=== PATIENT | female | born 1950 | race African-American/Black ===

== ENCOUNTER 2023-05-15 10:00 | Outpatient (REF) | payer BC, SELFPAY | END 2023-05-15 10:01 | disposition home or self-care (01) | LOC: NFLDREF 10:00 | PROVIDERS: PCP Internal Medicine; Referring Provider Internal Medicine; Visit Provider Internal Medicine | DX: Z13.1 Encounter for screening for diabetes mellitus (principal); Z13.220 Encounter for screening for lipoid disorders | CPT/HCPCS: 80061; 82947 ==

== ENCOUNTER 2023-05-22 15:02 | Outpatient (CLI) | payer BC, SELFPAY ==
--- NOTE | 2023-05-22 15:20 | CRLHL7_ITS ---
For Patients: As a result of the Cures Act, medical imaging exams and procedure reports are released immediately into your electronic medical record. You may view this report before your referring provider. If you have questions, please contact your health care provider. BILATERAL SCREENING MAMMOGRAM WITH COMPUTER-AIDED DETECTION AND TOMOSYNTHESIS TECHNIQUE: CC and MLO views were obtained. These mammographic images have been obtained using full-field digital technique. These mammographic images were interpreted with the benefit of computer-aided detection. Breast Tomosynthesis was used in this interpretation. COMPARISON FILM: 12/28/19, 08/25/18, 11/27/16. FINDINGS: There are scattered areas of fibroglandular density IMPRESSION: There is no radiographic evidence for malignancy. ASSESSMENT: BI-RADS Category 1: Negative RECOMMENDATION: Routine screening mammogram in 1 year. A lay language report of this examination will be provided to the patient. AARON MCCLENDON MD Diagnostic/Nuclear Medicine Radiologist [email or web address] HEYDI/rondae be/Dictated by: Aaron Mcclendon MD @ 05/25/2023 8:35:00 AM (Electronically Signed)
== END 2023-05-22 15:03 | disposition home or self-care (01) ==
LOC: MAMMO 15:03
PROVIDERS: PCP Internal Medicine; Visit Provider Internal Medicine
DX: Z12.31 Encounter for screening mammogram for malignant neoplasm of breast (principal)
CPT/HCPCS: 77063; 77067

== ENCOUNTER 2024-04-06 11:42 | Emergency (ER) | payer BC, SELFPAY ==
[2024-04-06 11:48] VITALS: BP 140/77; PULSE 98; RESP 16; TEMP 36.7; O2SAT 99; BMI 29.4
--- NOTE | 2024-04-06 12:08 | ED_ITS ---
HPI - General Adult General Chief complaint: Cough Stated complaint: Cough, phlegm, fever, covid exposure Time Seen by Provider: 04/06/24 11:50 History of Present Illness HPI narrative: This 73-year-old female comes in reporting cough and fever that began 4 days ago. She arrives here with normal vital signs and does not currently have a fever. She does not report any shortness of breath. She does report some productive cough and other times feeling like she is unable to expect her 8. Related Data Home Medications ?Medication ?Instructions ?Recorded ?Confirmed multivitamin 1 tab PO QAM 01/22/23 03/14/24 calcium 1 tab PO DAILY 05/19/23 03/14/24 cholecalciferol (vitamin D3) 1 tab PO DAILY 05/19/23 03/14/24 Previous Rx's ?Medication ?Instructions ?Recorded azithromycin 500 mg tablet 500 mg PO QDAY #3 tabs 03/14/24 mefloquine 250 mg tablet 250 mg PO QWEEK #10 tabs 03/14/24 naproxen 500 mg tablet 500 mg PO BIDWMEAL #28 tabs 03/14/24 acetaminophen 300 mg-codeine 30 mg 1 tab PO Q6H PRN pain #15 tabs 04/06/24 tablet methylprednisolone 4 mg tablets in See Rx Instructions PO .COMPLEX 04/06/24 a dose pack (Medrol (Choco)) #21 ea Allergies Allergy/AdvReac Type Severity Reaction Status Date / Time No Known Drug Allergies Allergy Verified 04/06/24 11:48 Review of Systems Status of ROS: Reports: 10 or more systems reviewed and unremarkable except as noted in History and below Narrative: Constitutional: No fevers, no weight gain or loss. Eyes: No discharge. No vision changes. HENT: No congestion, no sore throat, no ear pain. Cardiovascular: No chest pain, no palpitations. Respiratory: No shortness of breath, no wheezes. Cough as described above. Gastrointestinal: No abdominal pain, no vomiting, no diarrhea. Genitourinary: No dysuria, no hematuria. Musculoskeletal: Normal range of motion. Skin: No rashes, no pruritis. Neurological: No dizziness, weakness, sensory change, speech change. Endo/Heme/Allergies: No bruising or bleeding. No polydipsia. Pysch: no suicidality, no anxiety, no insomnia. All other systems reviewed and are negative. PFSH PFSH Surgical History (Updated 01/22/23 @ 10:31 by Oxana Keys MD) History of vertebral fracture ?Z87.81 - Personal history of (healed) traumatic fracture (ICD-10) History of partial thyroidectomy ?E89.0 - Postprocedural hypothyroidism (ICD-10) History of hysterectomy ?Z90.710 - Acquired absence of both cervix and uterus (ICD-10) Social History (Updated 05/19/23 @ 12:53 by Manju Giron ~ [place]) What is your current living situation?: I presently have a place to live Problems where you live: carbon monoxide detectors missing or not working In the past 12 months, utilities in danger of being shut off: no In past 12 months, lack of transportation kept you from medical appts, meetings, work, or getting things needed for daily living: yes In the past 12 mos, have been you worried that your food would run out before you had money to buy more?: never true In the past 12 mos, the food you bought just didn't last and you didn't have money to buy more?: sometimes true Smoking Status: Never smoker How often do you have a drink containing alcohol: never AUDIT-C Alcohol total score: 0 Non-prescribed substance use: denies use How often does anyone, including family, friends and others, physically hurt you : never How often does anyone, including family, friends and others, insult or talk down to you: sometimes How often does anyone, including family, friends and others, threaten you with harm: never How often does anyone, including family, friends and others, scream or curse at you: never Little interest or pleasure in doing things: not at all Feeling down, depressed, or hopeless: not at all Exam Narrative: Exam Narrative: Constitutional: Well-developed, well-nourished, no acute distress. HEENT: Normocephalic, atraumatic. Neck: Normal range of motion. Nontender. Supple. Heart: Regular. No murmurs. Normal rate. Intact distal pulses. Lungs: Clear to auscultation. No chest discomfort. No wheezes, rhonchi, or rales. Abdomen: Normal bowel sounds. Nontender. No rebound tenderness. Genitalia: Deferred. Back: No midline tenderness. Normal range of motion. Extremities: Normal range of motion. No injury. Skin: Intact. No rash. Warm. No erythema or pallor. Neurologic: No altered sensation. No weakness. Alert and oriented. Psychiatric: No suicidality. No anxiety or depression. No insomnia. Nursing notes and vitals signs are reviewed. Const: Vital Signs, click to edit/add: Vital Signs - 24 hr 04/06/24 11:48 Temperature 98.0 F Pulse Rate [Pulse Oximeter] 98 Respiratory Rate 16 Blood Pressure [Ri ght Upper Arm] 140/77 H Pulse Oximetry 99 Oxygen Delivery Me thod Room Air Course Vital Signs Vital signs: Initial Vital Signs Temperature 98.0 F 04/06/24 11:48 Temperature Source Temporal Artery Scan 04/06/24 11:48 Pulse Rate 98 04/06/24 11:48 Respiratory Rate 16 04/06/24 11:48 Blood Pressure 140/77 H 04/06/24 11:48 Blood Pressure Mean 98 04/06/24 11:48 Blood Pressure Position Sitting 04/06/24 11:48 Pulse Oximetry 99 04/06/24 11:48 Oxygen Delivery Method Room Air 04/06/24 11:48 Vital Signs Temperature 98.0 F 04/06/24 11:48 Pulse Rate 98 04/06/24 11:48 Respiratory Rate 16 04/06/24 11:48 Blood Pressure 140/77 H 04/06/24 11:48 Pulse Oximetry 99 04/06/24 11:48 Oxygen Delivery Method Room Air 04/06/24 11:48 Temperature 98.0 F 04/06/24 11:48 Pulse Rate 98 04/06/24 11:48 Respiratory Rate 16 04/06/24 11:48 Blood Pressure 140/77 H 04/06/24 11:48 Pulse Oximetry 99 04/06/24 11:48 Oxygen Delivery Method Room Air 04/06/24 11:48 Medical Decision Making MDM Narrative Medical decision making narrative: This patient comes in reporting 4 days of cough that began with fever also. She arrives here with normal vital signs and has a normal exam. Chest x-ray is obtained and shows no acute cardiopulmonary disease according to radiology report. Additionally swabs are obtained which returned with negative results f or strep, COVID, RSV, and influenza. The patient is likely dealing with some other viral upper respiratory infection. She is okay to be discharged home and did received prescriptions for Medrol Dosepak and Tylenol 3. Lab Data Labs: Lab Results 04/06/24 Range/Units 12:00 SARS-CoV-2 (PCR) Negative SARS-CoV-2 (Negative) Influenza Type A (PCR) Negative PCR FLU A (Negative) Influenza Type B (PCR) Negative PCR FLU B (Negative) RSV (PCR) Negative PCR RSV (Negative) Group A Strep DNA NOT DETECTED (Not Detectd) Imaging Data Chest x-ray: Radiologist's impression: No evidence of acute cardiopulmonary disease. Discharge Plan Discharge Clinical Impression: Acute upper respiratory infection Additional Instructions: Take medication as prescribed. Use [id number] cough medicine also as needed and directed. Follow up with MD or return if worsening. Prescriptions: New acetaminophen-codeine 300-30 mg tablet 1 tab PO Q6H PRN (Reason: pain) Qty: 15 0RF methylprednisolone [Medrol (Choco)] 4 mg tablets,dose pack See Rx Instructions .ROUTE .COMPLEX Qty: 21 0RF Rx Instructions: orally per package directions No Action cholecalciferol (vitamin D3) 1 tab PO DAILY calcium 1 tab PO DAILY mefloquine 250 mg tablet 250 mg PO QWEEK Qty: 10 0RF Rx Instructions: Start 1 week before entering malaria area, weekly during entire trip, and for 1 month after leaving malaria area azithromycin 500 mg tablet 500 mg PO QDAY Qty: 3 0RF Rx Instructions: For self-treatment of traveller's diarrhea not helped with over the counter medications multivitamin Tablet 1 tab PO QAM naproxen 500 mg tablet 500 mg PO BIDWMEAL Qty: 28 0RF Follow Up/Referrals: Oxana Keys MD [Primary Care Provider] - Stand Alone Forms: [facility] Info Instructions
--- NOTE | 2024-04-06 12:08 | CRLHL7_ITS ---
For Patients: As a result of the Cures Act, medical imaging exams and procedure reports are released immediately into your electronic medical record. You may view this report before your referring provider. If you have questions, please contact your health care provider. INDICATION: Cough. TECHNIQUE: Chest 2 views. COMPARISON: 07/28/2023. FINDINGS: No pneumothorax or pleural effusion. Lungs are clear. Cardiac and mediastinal contours are within normal limits. Upper abdomen and osseous structures as imaged show no acute abnormality. IMPRESSION: No evidence of acute cardiopulmonary disease. Dictated by Deepak Huitron MD @ 04/06/2024 12:51:33 PM (Electronically Signed)
[2024-04-06 12:32] LABS: Strep A DNA Probe* NOT DETECTED (Not Detectd)
[2024-04-06 12:43] LABS: PCR FLU A Negative PCR FLU A (Negative); PCR FLU B Negative PCR FLU B (Negative); PCR RSV Negative PCR RSV (Negative); SARS PCR* Negative SARS-CoV-2 (Negative)
--- OUTSIDE RECORDS SUMMARY | 2024-04-06 12:49 | XMS_ITS | Clinical Summary ---
Author Organization [facility] Address [place], [place] [address] Care Team Providers Care Senior Wealth Advisor Name Role Phone Joseluis Doty MD Primary Care Provider Allergies No known active allergies Medications Medication Sig Dispensed Refills Start Date End Date Status CALCIUM + D 600 MG (1,500)-200 UNIT TAB 0 02/01/2008 Acti ve multivitamin (MVI) tablet Take 1 tablet by mouth once daily. 0 08/04/2013 Active Active Problems Problem Noted Date Diagnosed Date Routine adult health maintenance 09/20/2015 Overview (09/20/2015): Colonoscopy 09/2015 normal repeat in 10 years Immunizations Name Administration Dates Next Due Influenza Virus, Unspecified 03/08/2015 Influenza, IIV3 (Age >=3 years) 03/22/2012 Pneumococcal conj 13-Valent (Prevnar 13) 015 Tdap 10/26/2014 Social History Tobacco Use Types Packs/Day Years Used Date Smoking Tobacco: Never Smokeless Tobacco: Never Tobacco Cessation:Counseling Given: Yes Alcohol Use Standard Drinks/Week Comments No 0 (1 standard drink = 0.6 oz pur e alcohol) Sex and Gender Information Value Date Recorded Sex Assigned at Not on file Gender Identity Not on file Sexual Orientation Not on file Obstetrics History Last Filed Vital Signs Vital Sign Reading Time Taken Comments Blood Pressure 129/80 09/20/2015 9:29 AM CDT Pulse 76 09/20/2015 9:29 AM CDT Temperature 36.7 ??C (98 ??F) 08/02/2015 11:33 AM APPLICATION PROCESSOR Respiratory Rate - - Oxygen Saturation 99% 09/20/2015 9:29 AM CDT Inhaled Oxygen Concentration - - Weight 68.9 kg (152 lb) 08/02/2015 11:33 AM APPLICATION PROCESSOR Height 160 cm (5' 3) 08/02/2015 11:33 AM APPLICATION PROCESSOR Body Mass Index 26.93 08/02/2015 11:33 AM APPLICATION PROCESSOR Plan of Treatment Health Maintenance Due Date Last Done Comments Mammogram for age 45-75 10/10/1996 Zoster (shingles) series for age 50+ (1 of 2) 10/10/2001 BMI (ht and wt on same day) for age 18+ 08/02/2016 08/02/2015 Depression screening for age 12+ 08/02/2016 08/02/19 16 DEXA/DXA scan for age 65+ 10/10/2016 Pneumococcal series for age 65+ (2 of 2 - PPSV23 or PCV20) 10/10/2016 10/26/2014 Lipids for age 45-75 08/04/2018 08/04/2013 COVID-19 vaccine series ( - ) 02/07/2024 Influenza for age 65+ 02/07/2024 03/08/2015, 012 Tetanus booster 10/26/2024 10/26/2014 Colonoscopy through age 75 09/19/202509/19, 09/20/2015, 03/15/2008 Tdap Completed 10/26/2014 Hepatitis C screening for age 18-79 Completed 08/02, 08/04/2013 Procedures Procedure Name Priority Date/Time Associated Diagnosis Comments ANTI HCV Routine 08/02/2015 12:00 PM APPLICATION PROCESSOR Screen for STD (sexually transmitted disease) LIPID PANEL W REFLEX MEASURED LDL Routine 08/04/2013 6:00 PM APPLICATION PROCESSOR Lipid screening from Last 3 Months or Most Recently Relevant to Health Maintenance Results * ANTI HCV (08/02/2015 12:00 PM APPLICATION PROCESSOR) HEPATITIS C ANTIBODY Non-Reacti ve Non-Reacti ve 08/02/2015 5:52 PM APPLICATION PROCESSOR [facility] Blood specimen (specimen) BLOOD SPECIMEN / Unknown Venipuncture / Unknown 08/02/2015 12:00 PM APPLICATION PROCESSOR 08/02/2015 12:01 PM APPLICATION PROCESSOR Narrative [facility] - 08/02/2015 5:52 PM APPLICATION PROCESSOR Antibodies to HCV not detected; does not exclude the possibility of exposure to HCV. Joseluis Doty MD SEND OUTS [facility] [address] [place] [address], [place] * LIPID PANEL W REFLEX MEASURED LDL (08/04/2013 6:00 PM APPLICATION PROCESSOR) CHOLESTEROL,TOTAL 180 100 - 199 mg/dL 08/04/2013 6:30 PM [facility] TRIGLYCERIDES 144 <150 mg/dL 08/04/2013 6:30 PM [facility] HDL CHOLESTEROL 70 >40 mg/dL 4 6:30 PM [facility] NON-HDL CHOLESTEROL 110 <145 mg/dl 08/04/2013 6:30 PM [facility] CHOL/HDL RATIO 2.57 <4.50 08/04/2013 6:30 PM [facility] LDL CHOLESTEROL 81 <=130 mg/dL 08/04/2013 6:30 PM [facility] PATIENT STATUS NON-FASTI NG 08/04/2013 6:30 PM [facility] Blood specimen (specimen) BLOOD SPECIMEN / Unknown Venipuncture / Unknown 08/04/2013 6:00 PM APPLICATION PROCESSOR 08/04/2013 6:00 PM APPLICATION PROCESSOR Joseluis Doty MD CHEMISTRY [facility] [address] [place] [address] from Last 3 Months or Most Recently Relevant to Health Maintenance Care Teams Senior Wealth Advisor Relationship Specialty Start Date End Date Joseluis Doty MD [address] [place] [address] PCP - General 12/19/05
== END 2024-04-06 13:37 | disposition home or self-care (01) ==
PROVIDERS: Emergency Provider Emergency Medicine Emergency Medical Services; PCP Internal Medicine
DX: J06.9 Acute upper respiratory infection, unspecified (principal)
CPT/HCPCS: 71046; 87631; 87651; 99284

== ENCOUNTER 2024-05-26 13:21 | Emergency (ER) | payer BC, SELFPAY ==
[2024-05-26 13:30] VITALS: BP 160/79; PULSE 88; RESP 16; TEMP 36.1; O2SAT 96; BMI 28.3
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
--- NOTE | 2024-05-26 14:21 | CRLHL7_ITS ---
For Patients: As a result of the Century Cures Act, medical imaging exams and procedure reports are released immediately into your electronic medical record. You may view this report before your referring provider. If you have questions, please contact your health care provider. INDICATION: Cervical radiculopathy. Left arm pain. TECHNIQUE: Right shoulder radiographs, 3 views. COMPARISON: None. FINDINGS: No acute fractures or dislocation. The glenoid appears intact. The joint spaces are preserved. The visualized lung waterman are clear. IMPRESSION: No acute fractures or dislocation. Dictated by Jaret Bassett MD @ 05/26/2024 3:08:07 PM (Electronically Signed)
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
--- NOTE | 2024-05-26 14:21 | CRLHL7_ITS ---
For Patients: As a result of the Century Cures Act, medical imaging exams and procedure reports are released immediately into your electronic medical record. You may view this report before your referring provider. If you have questions, please contact your health care provider. INDICATION: Cervical radiculopathy. Left arm pain. TECHNIQUE: Left shoulder radiographs, 3 views. COMPARISON: None. FINDINGS: No acute fractures or dislocation. The glenoid appears intact. Mild degeneration of the acromioclavicular joint. The visualized lung waterman appear clear. IMPRESSION: No acute fractures or dislocation. Dictated by Jaret Bassett MD @ 05/26/2024 3:09:05 PM (Electronically Signed)
== END 2024-05-26 16:15 | disposition home or self-care (01) ==
PROVIDERS: Emergency Provider Family Medicine; PCP Internal Medicine
DX: M25.511 Pain in right shoulder (principal); M25.512 Pain in left shoulder; M50.30 Other cervical disc degeneration, unspecified cervical region
CPT/HCPCS: 72040; 73030; 99283

== ENCOUNTER 2024-08-15 10:30 | Outpatient (RCR) | payer BC, SELFPAY ==
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
== END 2024-09-08 10:01 | disposition home or self-care (01) ==
PROVIDERS: PCP Internal Medicine; Visit Provider Orthopaedic Surgery Sports Medicine
DX: M75.81 Other shoulder lesions, right shoulder (principal); M75.41 Impingement syndrome of right shoulder; M25.511 Pain in right shoulder; R53.1 Weakness; Z51.89 Encounter for other specified aftercare
CPT/HCPCS: 97110; 97162

== ENCOUNTER 2024-09-29 14:07 | Outpatient (CLI) | payer BC, SELFPAY | END 2024-09-29 14:08 | disposition home or self-care (01) | PROVIDERS: PCP Internal Medicine; Visit Provider Internal Medicine | DX: E78.5 Hyperlipidemia, unspecified (principal); Z11.1 Encounter for screening for respiratory tuberculosis | CPT/HCPCS: 80061; 86480 ==